=== PATIENT | male | born 1990 | race Caucasian/White ===

== ENCOUNTER 2023-08-12 10:22 | Emergency (ER) | payer MEDICAID ==
[~2023-08-12] VITALS: Ht 175.3 cm; Wt 95.0 kg
[2023-08-12 10:26] VITALS: O2SAT 99
[2023-08-12] MEDS ORDERED: IBUP-2030 MT (10:56)
[2023-08-12] MEDS ORDERED: KETOROLAC 30MG/ML VIAL IM ONE (11:00)
[2023-08-12 11:08] VITALS: BP 101/65; PULSE 64; RESP 16; TEMP 98.6
== END 2023-08-12 11:10 | disposition home or self-care (01) ==
LOC: ER 10:36
DX: M54.50 Low back pain, unspecified (principal)
CPT/HCPCS: 99283; 96372; J1885

== ENCOUNTER 2023-11-25 17:51 | Emergency (ER) | payer MEDICAID ==
[~2023-11-25] VITALS: Ht 175.3 cm; Wt 95.0 kg
[~2023-11-25 17:51] MED LIST: IBUP-2030 MT
[2023-11-25 17:53] VITALS: PULSE 80; RESP 16
[2023-11-25 17:57] VITALS: BP 128/68; TEMP 98.1; O2SAT 97
== END 2023-11-25 20:29 | disposition home or self-care (01) ==
LOC: ER 17:58
DX: S61.011A Laceration without foreign body of right thumb without damage to nail, initial encounter (principal); W26.8XXA Contact with other sharp object(s), not elsewhere classified, initial encounter; Y93.89 Activity, other specified; Y92.89 Other specified places as the place of occurrence of the external cause; Y99.8 Other external cause status
CPT/HCPCS: 73140; 99283